=== PATIENT | female | born 1995 | race Caucasian/White ===

== ENCOUNTER 2019-04-14 18:09 | Emergency (ER) | payer SELFPAY ==
--- NOTE | 2019-04-14 18:18 | PDOC ---
Rapid Medical Evaluation Time Seen by Provider: 04/14/19 18:16 Medical Evaluation: Allergies Allergy/AdvReac Type Severity Reaction Status Date / Time No Known Allergies Allergy Verified 01/15/19 23:29 04/14/19 18:16 CC: "I have asthma that won't go away." PE: Speaking in run-on sentences. Lungs with end expiratory wheezes Orders: nebs Patient will proceed to ED for further evaluation. Discharge Disposition - Diagnosis Wheezing - Referrals - Patient Instructions - Post Discharge Activity
[2019-04-14 18:19] VITALS: BP 121/66; PULSE 82; TEMP 98.2; BMI 31.1
[2019-04-14] MEDS ORDERED: DEXAMETHASONE LIQUID 0.5 MG/5 ML PO ONE (18:47)
[2019-04-14] MEDS ORDERED: DEXAMETHASONE 1.5 MG TABLET ONE (18:51)
[2019-04-14] MEDS ORDERED: ALBUTEROL SO4 2.5/IPRATROPIUM 0.5 INH SOL 3 ML VIAL.NEB. NEB ONE ×2 (18:51→19:28)
[2019-04-14] MEDS ORDERED: DEXAMETHASONE 4 MG TABLET (FP) ONE (18:51)
[2019-04-14] MEDS: ALBUTEROL SO4 2.5/IPRATROPIUM 0.5 INH SOL 3 ML VIAL.NEB. NEB SCH ×4 (18:52→19:44)
[2019-04-14] MEDS ORDERED: LORATADINE 10 MG TABLET PO ONE (19:25)
[2019-04-14] MEDS ORDERED: LORATADINE 10 MG TABLET ONE (19:28)
--- NOTE | 2019-04-14 20:07 | PDOC ---
History of Present Illness - General Chief Complaint: Asthma Stated Complaint: ASTHMA/POSSIBLE ALLERGIES Time Seen by Provider: 04/14/19 18:16 - History of Present Illness Initial Comments: 04/14/19 20:06 23-year-old female presents for evaluation of cough and exacerbation of asthma symptoms x1 week without much relief from her home Ventolin. No systemic symptoms Past History - Past Medical History Allergies/Adverse Reactions: Allergies Allergy/AdvReac Type Severity Reaction Status Date / Time No Known Allergies Allergy Verified 04/14/19 18:17 Home Medications: Ambulatory Orders Albuterol Sulfate Inhaler - [Ventolin HFA Inhaler -] 1 - 2 inh PO Q4H #1 inhaler 04/14/19 Asthma: Yes COPD: No - Immunization History Immunization Up to Date: Yes - Psycho Social/Smoking Cessation Hx Smoking History: Never smoked Hx Alcohol Use: No Drug/Substance Use Hx: No Review of Systems - Review of Systems Respiratory: Yes: Cough, Wheezing *Physical Exam - Vital Signs Last Vital Signs Temp Pulse Resp BP Pulse Ox 98.2 F 82 17 121/66 95 04/14/19 18:17 04/14/19 18:17 04/14/19 18:17 04/14/19 18:17 04/14/19 18:17 - Physical Exam Comments: 04/14/19 20:06 GENERAL: The patient is awake, alert, and fully oriented, in no acute distress. HEAD: Normal with no signs of trauma. EYES: sclera anicteric, conjunctiva clear. ENT: Ears normal NECK: Normal range of motion LUNGS: Right-sided wheezing without rhonchi HEART: S1 and S2 without murmur, rub or gallop. ABDOMEN: Soft, nontender, normoactive bowel sounds. No guarding, no rebound. No masses. EXTREMITIES: Normal range of motion, no edema. No clubbing or cyanosis. No cords, erythema, or tenderness. NEUROLOGICAL: Cranial nerves II through XII grossly intact. Normal speech, normal gait. PSYCH: Normal mood, normal affect. SKIN: Warm, Dry, normal turgor, no rashes or lesions noted. ED Treatment Course - Medications Given in the ED: ED Medications Discontinued Medications Generic Name Dose Route Start Last Admin Trade Name Freq PRN Reason Stop Dose Admin Albuterol/Ipratropium 1 amp 04/14/19 18:30 04/14/19 19:44 Duoneb - NEB 04/14/19 19:16 1 amp Q15M [id number] Administration Dexamethasone 10 mg 04/14/19 18:47 04/14/19 18:52 Decadron Liquid - PO 04/14/19 18:48 10 mg ONCE ONE Administration Loratadine 10 mg 04/14/19 19:25 04/14/19 19:30 Claritin - PO 04/14/19 19:26 10 mg ONCE ONE Administration Medical Decision Making - Medical Decision Making 04/14/19 20:06 Lungs clear to auscultation bilaterally all the way to bases after for duo nebs and Decadron asthma exacerbation follow-up with PCP Discharge - Discharge Information Problems reviewed: Yes Clinical Impression/Diagnosis: Wheezing, Asthma Condition: Stable Disposition: HOME - Admission No - Additional Discharge Information Prescriptions: Albuterol Sulfate Inhaler - [Ventolin HFA Inhaler -] 1 - 2 inh PO Q4H #1 inhaler - Follow up/Referral - Patient Discharge Instructions Patient Printed Discharge Instructions: Asthma -- Adult Additional Instructions: Return to the emergency room for worsening symptoms. Please follow-up with your primary care physician in 1 to 2 days for further evaluation and treatment options. Follow-up with primary care physician in 1 to 2 days without fail. Your Ventolin was refilled today. - Post Discharge Activity
== END 2019-04-14 20:14 | disposition home or self-care (01) ==
LOC: JERFT 18:09
PROC: 3E0F7GC Introduction of Other Therapeutic Substance into Respiratory Tract, Via Natural or Artificial Opening (ICD-10-PCS; principal; 2019-04-14)
DX: J45.901 Unspecified asthma with (acute) exacerbation (principal)
CPT/HCPCS: 99282-25

== ENCOUNTER 2020-11-15 04:03 | Emergency (ER) | payer OTHER ==
[2020-11-15 04:23] VITALS: BP 125/85; TEMP 98.9; BMI 27.4
[2020-11-15] MEDS ORDERED: ALBUTEROL SO4 2.5/IPRATROPIUM 0.5 INH SOL 3 ML VIAL.NEB. NEB SCH (05:30)
[2020-11-15] MEDS ORDERED: AZITHROMYCIN 500 MG TABLET PO ONE (05:32)
[2020-11-15] MEDS ORDERED: ACETAMINOPHEN 325 MG TABLET (FP) ONE (05:37)
[2020-11-15] MEDS ORDERED: ACETAMINOPHEN 325 MG TABLET (FP) PO ONE (05:37)
[2020-11-15] MEDS ORDERED: AZITHROMYCIN 250 MG TABLET ONE (05:37)
[2020-11-15] MEDS ORDERED: ALBUTEROL SO4 2.5/IPRATROPIUM 0.5 INH SOL 3 ML VIAL.NEB. NEB ONE (05:37)
[2020-11-15 06:51] VITALS: PULSE 127
== END 2020-11-15 06:51 | disposition home or self-care (01) ==
LOC: JER 04:03
PROC: 3E0F7GC Introduction of Other Therapeutic Substance into Respiratory Tract, Via Natural or Artificial Opening (ICD-10-PCS; principal; 2020-11-15)
DX: J06.9 Acute upper respiratory infection, unspecified (principal)
CPT/HCPCS: 99283-25